=== PATIENT | male | born 1955 | race Caucasian/White ===

== ENCOUNTER 2020-02-07 14:48 | Emergency (ER) | payer OTHER ==
[~2020-02-07] VITALS: Ht 190.5 cm; Wt 120.2 kg
[~2020-02-07 14:48] MED LIST: ALLO300
[2020-02-07] MEDS ORDERED: Norco 5-325 Ta1 EACH PO (16:13)
[2020-02-07] MEDS ORDERED: CEPH500 PO (16:13)
== END 2020-02-07 16:25 | disposition home or self-care (01) ==
LOC: ER 14:48
DX: S91.011A Laceration without foreign body, right ankle, initial encounter (principal); M10.9 Gout, unspecified; Z88.8 Allergy status to other drugs, medicaments and biological substances; W27.8XXA Contact with other nonpowered hand tool, initial encounter
CPT/HCPCS: 12034; 73600; 96374-59; 96375-59; 99283-25; J1170; J2405

== ENCOUNTER 2020-02-07 17:32 | Emergency (ER) | payer OTHER ==
[~2020-02-07] VITALS: Ht 188 cm; Wt 122.5 kg
[~2020-02-07 17:32] MED LIST changes: +CEPH500 PO; +Norco 5-325 Ta1 EACH PO
[2020-02-07 18:28] LABS: BASOPHILS ABSOLUTE AUTO 0.08 K/mm3 (0.00-0.23); BASOPHILS PERCENT AUTO 0 % (0-2); EOSINOPHILS ABSOLUTE AUTO 0.26 K/mm3 (0.00-0.68); EOSINOPHILS PERCENT AUTO 1 % (0-6); Hematocrit 47.9 % (37.0-53.0); Hemoglobin 15.6 g/dL (13.5-17.5); IMMATURE GRAN ABSOLUTE AUTO 0.12 K/mm3 (0.00-0.10); IMMATURE GRAN PERCENT AUTO 1 % (0-1); LYMPHOCYTES ABSOLUTE AUTO 2.74 K/mm3 (0.84-5.20); LYMPHOCYTES PERCENT AUTO 15 % (21-46); MONOCYTES ABSOLUTE AUTO 0.91 K/mm3 (0.16-1.47); MONOCYTES PERCENT AUTO 5 % (4-13); Mean Corpuscular HGB 30.5 pg (26.0-34.0); Mean Corpuscular HGB Conc 32.6 g/dL (31.5-36.5); Mean Corpuscular Volume 94 fL (80-100); Mean Platelet Volume 9.3 fL (9.1-12.4); NEUTROPHILS ABSOLUTE AUTO 14.16 K/mm3 (1.96-9.15); NEUTROPHILS PERCENT AUTO 78 % (41-73); Platelet Count 287 K/mm3 (150-400); RDW Coefficient Variation 13.8 % (11.7-14.2); RDW Standard Deviation 48.3 fL (35.1-46.3); Red Blood Cell Count 5.11 M/mm3 (4.30-5.90); White Blood Cell Count 18.27 K/mm3 (4.00-11.30)
== END 2020-02-07 19:50 | disposition home or self-care (01) ==
LOC: ER 17:32
PROVIDERS: Nurse Practitioner
DX: S91.312A Laceration without foreign body, left foot, initial encounter (principal); I10 Essential (primary) hypertension; F17.200 Nicotine dependence, unspecified, uncomplicated; Z88.8 Allergy status to other drugs, medicaments and biological substances; Z79.899 Other long term (current) drug therapy; W29.3XXA Contact with powered garden and outdoor hand tools and machinery, initial encounter
CPT/HCPCS: 36415; 85025; 99283; A9270-GY

== ENCOUNTER → 2020-02-18 | Outpatient (CLI) | payer OTHER ==
[2020-02-18 17:06] LABS: BASOPHILS ABSOLUTE AUTO 0.08 K/mm3 (0.00-0.23); BASOPHILS PERCENT AUTO 1 % (0-2); EOSINOPHILS ABSOLUTE AUTO 0.74 K/mm3 (0.00-0.68); EOSINOPHILS PERCENT AUTO 5 % (0-6); Hematocrit 48.2 % (37.0-53.0); Hemoglobin 15.6 g/dL (13.5-17.5); IMMATURE GRAN ABSOLUTE AUTO 0.08 K/mm3 (0.00-0.10); IMMATURE GRAN PERCENT AUTO 1 % (0-1); LYMPHOCYTES ABSOLUTE AUTO 3.04 K/mm3 (0.84-5.20); LYMPHOCYTES PERCENT AUTO 22 % (21-46); MONOCYTES ABSOLUTE AUTO 1.29 K/mm3 (0.16-1.47); MONOCYTES PERCENT AUTO 9 % (4-13); Mean Corpuscular HGB 30.7 pg (26.0-34.0); Mean Corpuscular HGB Conc 32.4 g/dL (31.5-36.5); Mean Corpuscular Volume 95 fL (80-100); Mean Platelet Volume 8.9 fL (9.1-12.4); NEUTROPHILS ABSOLUTE AUTO 8.43 K/mm3 (1.96-9.15); NEUTROPHILS PERCENT AUTO 62 % (41-73); Platelet Count 437 K/mm3 (150-400); RDW Coefficient Variation 14.1 % (11.7-14.2); RDW Standard Deviation 48.7 fL (35.1-46.3); Red Blood Cell Count 5.08 M/mm3 (4.30-5.90); White Blood Cell Count 13.66 K/mm3 (4.00-11.30)
== END | disposition home or self-care (01) ==
LOC: LAB 15:20 → LAB SHORT 15:20
PROVIDERS: Nurse Practitioner Family
DX: L03.119 Cellulitis of unspecified part of limb (principal)
CPT/HCPCS: 85025; 87070; 87075; 87205

== ENCOUNTER → 2020-03-06 | Outpatient (CLI) | payer OTHER | END | disposition home or self-care (01) | LOC: LAB SHORT 19:00 → LAB 19:00 | DX: T14.8XXD Other injury of unspecified body region, subsequent encounter (principal); T81.30XD Disruption of wound, unspecified, subsequent encounter | CPT/HCPCS: 87070; 87075; 87077; 87186; 87205 ==

== ENCOUNTER 2020-03-21 00:37 | Day surgery (SDC) | payer OTHER | END 2020-03-21 23:21 | disposition home or self-care (01) | LOC: WOUND 00:37 | DX: E11.622 Type 2 diabetes mellitus with other skin ulcer (principal); L97.822 Non-pressure chronic ulcer of other part of left lower leg with fat layer exposed; E78.5 Hyperlipidemia, unspecified; I10 Essential (primary) hypertension; F41.9 Anxiety disorder, unspecified; F41.3 Other mixed anxiety disorders; F32.9 Major depressive disorder, single episode, unspecified; F17.210 Nicotine dependence, cigarettes, uncomplicated; G47.33 Obstructive sleep apnea (adult) (pediatric) ==

== ENCOUNTER 2020-03-27 00:20 | Day surgery (SDC) | payer OTHER | END 2020-03-27 23:23 | disposition home or self-care (01) | LOC: WOUND 00:20 | DX: E11.622 Type 2 diabetes mellitus with other skin ulcer (principal); L97.822 Non-pressure chronic ulcer of other part of left lower leg with fat layer exposed; E78.5 Hyperlipidemia, unspecified; E66.9 Obesity, unspecified; F41.9 Anxiety disorder, unspecified; F32.9 Major depressive disorder, single episode, unspecified; F17.200 Nicotine dependence, unspecified, uncomplicated; I10 Essential (primary) hypertension; G47.33 Obstructive sleep apnea (adult) (pediatric); Z68.33 Body mass index [BMI] 33.0-33.9, adult; Z79.899 Other long term (current) drug therapy ==

== ENCOUNTER 2020-04-02 00:47 | Day surgery (SDC) | payer OTHER | END 2020-04-02 23:18 | disposition home or self-care (01) | LOC: WOUND 00:47 | DX: E11.622 Type 2 diabetes mellitus with other skin ulcer (principal); L97.822 Non-pressure chronic ulcer of other part of left lower leg with fat layer exposed; E78.5 Hyperlipidemia, unspecified; E66.9 Obesity, unspecified; F41.8 Other specified anxiety disorders; F17.210 Nicotine dependence, cigarettes, uncomplicated; I10 Essential (primary) hypertension; G47.33 Obstructive sleep apnea (adult) (pediatric) ==

== ENCOUNTER 2020-04-10 00:16 | Day surgery (SDC) | payer OTHER | END 2020-04-10 23:15 | disposition home or self-care (01) | LOC: WOUND 00:16 | DX: E11.622 Type 2 diabetes mellitus with other skin ulcer (principal); L97.822 Non-pressure chronic ulcer of other part of left lower leg with fat layer exposed; E78.5 Hyperlipidemia, unspecified; E66.9 Obesity, unspecified; F17.200 Nicotine dependence, unspecified, uncomplicated; G47.30 Sleep apnea, unspecified; I10 Essential (primary) hypertension; F41.8 Other specified anxiety disorders; Z68.33 Body mass index [BMI] 33.0-33.9, adult; Z79.899 Other long term (current) drug therapy ==

== ENCOUNTER 2020-04-24 00:19 | Day surgery (SDC) | payer OTHER | END 2020-04-24 22:49 | disposition home or self-care (01) | LOC: WOUND 00:19 | DX: E11.622 Type 2 diabetes mellitus with other skin ulcer (principal); L97.822 Non-pressure chronic ulcer of other part of left lower leg with fat layer exposed; F17.200 Nicotine dependence, unspecified, uncomplicated; I10 Essential (primary) hypertension; E66.9 Obesity, unspecified; F41.9 Anxiety disorder, unspecified; F32.9 Major depressive disorder, single episode, unspecified; E78.5 Hyperlipidemia, unspecified; G47.33 Obstructive sleep apnea (adult) (pediatric); Z68.33 Body mass index [BMI] 33.0-33.9, adult; Z79.899 Other long term (current) drug therapy ==

== ENCOUNTER 2023-01-05 10:23 | Day surgery (SDC) | payer MEDICARE, BC ==
[~2023-01-05] VITALS: Ht 190.5 cm; Wt 124.8 kg
[~2023-01-05 10:23] MED LIST changes: +ALLO100 PO; +AMLO10 PO; +BUSP10 PO; +HYDCHL25 PO; +IRBE150 PO; +METF500 PO; +METO50ER PO; +ROSU10TA PO; +SERT100 PO; +TAMS.4ER PO
--- NOTE | 2023-01-05 14:37 | NUR ---
01/05/23 1437 Hemalatha Torres PATIENT RECEIVED VANCO 1GM IN THE PREOP SETTING PRIOR TO ARRIVING IN THE OR.
--- NOTE | 2023-01-05 17:20 | NUR ---
PATIENT ARRIVED TO ROOM VIA BED. X3 BULKY DRESSINGS TO LEFT HIP, C/D/I. POLAR PACK IN PLACE. PATIENT REPORTS PAIN 3/10 AT THIS TIME, STATES A TOLERABLE LEVEL IS 4. ABLE TO WIGGLE ALL TOES, HAS FULL SENSATION TO BLE. VSS ON RA, LUNGS CLEAR. ORIENTED TO ROOM & CALL LIGHT, IN REACH.
--- NOTE | 2023-01-05 19:05 | NUR ---
NO ACUTE CHANGES SINCE ARRIVAL TO UNIT. PATIENT HAS DENIED NEED FOR PAIN MEDICATION. INSULIN PER EMAR. TOLERATING PO DIET WELL, DENIES N/V. PATIENT HAS NOT BEEN OOB YET. CALL LIGHT IN REACH, REPORT GIVEN TO EDGARD MILLER.
--- NOTE | 2023-01-06 04:36 | NUR ---
POD1 LEFT THI. SENSATION AND CIRCULATION REMAINS INTACT IN LLE. DRESSING IS C/D/I. VSS. PT SLEPT WELL T/O THE NIGHT. PT ONLY TOOK SCHEULED TORADOL AND TYLENOL. C/O GENERALIZED BODY ACHED BUT NO "HIP PAIN". PT DID NOT GET OOB LAST NIGHT D/T COMING OUT OF PACU LATER IN THE EVENING, PLAN TO GET PT UP TO RECLINER THIS AM. PT HAD MINIMAL URINE OUTPUT, PLAN TO BLADDER SCAN AND HAVE PT ATTEMPT TO VOID AFTER GETTING OOB. TOLLERATING PO INTAKE W/O N/V. NO ACUTE EVENTS T/O THE NIGHT. PLAN FOR PT AND OT AND PT TO D/C HOME TODAY. THE PATIENT IS CURRENTSL SLEEPING, IN NO DISTRESS, CALL LIGHT IN REACH
[2023-01-06 05:02] LABS: BASOPHILS ABSOLUTE AUTO 0.04 K/mm3 (0.00-0.23); BASOPHILS PERCENT AUTO 0 % (0-2); EOSINOPHILS PERCENT AUTO 0 % (0-6); Hemoglobin 12.4 g/dL (13.5-17.5); IMMATURE GRAN ABSOLUTE AUTO 0.19 K/mm3 (0.00-0.10); IMMATURE GRAN PERCENT AUTO 1 % (0-1); LYMPHOCYTES ABSOLUTE AUTO 1.45 K/mm3 (0.84-5.20); LYMPHOCYTES PERCENT AUTO 6 % (21-46); MONOCYTES PERCENT AUTO 6 % (4-13); Mean Corpuscular HGB 29.7 pg (26.0-34.0); Mean Corpuscular HGB Conc 32.6 g/dL (31.5-36.5); Mean Corpuscular Volume 91 fL (80-100); Mean Platelet Volume 9.2 fL (9.1-12.4); NEUTROPHILS ABSOLUTE AUTO 20.28 K/mm3 (1.96-9.15); NEUTROPHILS PERCENT AUTO 87 % (41-73); Platelet Count 256 K/mm3 (150-400); RDW Coefficient Variation 14.2 % (11.7-14.2); RDW Standard Deviation 47.7 fL (35.1-46.3); Red Blood Cell Count 4.18 M/mm3 (4.30-5.90); White Blood Cell Count 23.26 K/mm3 (4.00-11.30)
[2023-01-06 06:01] LABS: Bun/Creatinine Ratio 31.4 (12.0-20.0); Creatinine, Blood 0.73 mg/dL (0.60-1.20); Magnesium, Blood 1.6 mg/dL (1.6-2.4); Potassium, Blood 3.8 mmol/L (3.5-5.5)
[2023-01-06] MEDS ORDERED: Aspir 8181 MG PO (09:33)
[2023-01-06] MEDS ORDERED: BACTRIM DS TAB1 EAC6 PO (09:48)
[2023-01-06] MEDS ORDERED: OXAYDO5 M1 PO (09:48)
[2023-01-06] MEDS ORDERED: ONDA4ODT MM (09:49)
--- NOTE | 2023-01-06 11:32 | NUR ---
DISCHARGED TO HOME WITH SON. PT REPORTS PAIN IS WELL CONTROLLED, DENIES NAUSEA. LUCA PO FOOD AND FLUIDS WITHOUT NAUSEA. VOIDING CLEAR YELLOW URINE. DRESSING SUPPLIES PROVIDED TO PATIENT. PT AND HIS SON DENY ANY QUESTIONS REGARDING DISCHARGE
== END 2023-01-06 11:47 | disposition home or self-care (01) ==
LOC: ORSCMMR 10:23 → SURS 17:17 → ORD 17:30 → ORSCMMR 17:30
PROVIDERS: Orthopaedic Surgery
PROC: 0SRB0JA Replacement of Left Hip Joint with Synthetic Substitute, Uncemented, Open Approach (ICD-10-PCS; principal; 2023-01-05 14:15)
DX: M16.12 Unilateral primary osteoarthritis, left hip (principal); I10 Essential (primary) hypertension; E78.5 Hyperlipidemia, unspecified; G47.33 Obstructive sleep apnea (adult) (pediatric); Z87.891 Personal history of nicotine dependence; E11.9 Type 2 diabetes mellitus without complications; F41.8 Other specified anxiety disorders; Z79.899 Other long term (current) drug therapy; E66.9 Obesity, unspecified; Z68.36 Body mass index [BMI] 36.0-36.9, adult; Z79.84 Long term (current) use of oral hypoglycemic drugs
CPT/HCPCS: 36415; 72170; 80048; 82947; 83735; 85025; 97110; 97161; 97166; 97530; 97535; A9270; C1713; C1776; J0171; J0690; J0735; J1100; J1815; J1885; J2250; J2370; J2405; J2704; J2765; J2795; J3010; J3370; J7030; J7120

== ENCOUNTER 2023-10-06 07:24 | Day surgery (SDC) | payer MEDICARE, BC ==
[~2023-10-06] VITALS: Ht 188 cm; Wt 124.4 kg
[~2023-10-06 07:24] MED LIST changes: -ALLO100 PO; +ALLO300 PO; +AMLO10; -AMLO10 PO; +Aspir 8181 MG PO; +Avapro300 MG PO; +BACTRIM DS TAB1 EAC6 PO; -IRBE150 PO; +ONDA4ODT MM; +OXAYDO5 M1 PO
[2023-10-06] MEDS ORDERED: LOSA50 PO (07:39)
[2023-10-06] MEDS ORDERED: AMOX500 PO (07:43)
[2023-10-06 08:56] VITALS: BP 163/82
--- NOTE | 2023-10-06 09:01 | NUR ---
10/06/23 0901 Prince Fuentes IV REMOVED INTACT. SITE WNL.
== END 2023-10-06 09:13 | disposition home or self-care (01) ==
LOC: ORSCSDS 07:24
PROVIDERS: Ophthalmology
PROC: 08RK3JZ Replacement of Left Lens with Synthetic Substitute, Percutaneous Approach (ICD-10-PCS; principal; 2023-10-06 08:30)
DX: E11.36 Type 2 diabetes mellitus with diabetic cataract (principal); H25.12 Age-related nuclear cataract, left eye; J44.9 Chronic obstructive pulmonary disease, unspecified; I10 Essential (primary) hypertension; Z68.35 Body mass index [BMI] 35.0-35.9, adult; Z79.899 Other long term (current) drug therapy
CPT/HCPCS: 82947; J2001; J2250; J3010; J3301; J7040; V2632

== ENCOUNTER 2023-10-13 10:22 | Day surgery (SDC) | payer MEDICARE, BC ==
[~2023-10-13] VITALS: Ht 188 cm; Wt 126.5 kg
[~2023-10-13 10:22] MED LIST changes: +AMOX500 PO; +LOSA50 PO
[2023-10-13 12:21] VITALS: BP 159/77
== END 2023-10-13 12:29 | disposition home or self-care (01) ==
LOC: ORSCSDS 10:22
PROVIDERS: Ophthalmology
PROC: 08RJ3JZ Replacement of Right Lens with Synthetic Substitute, Percutaneous Approach (ICD-10-PCS; principal; 2023-10-13 11:30)
DX: H25.11 Age-related nuclear cataract, right eye (principal); Z96.1 Presence of intraocular lens; F41.9 Anxiety disorder, unspecified; E78.5 Hyperlipidemia, unspecified; I10 Essential (primary) hypertension; E66.9 Obesity, unspecified; Z68.35 Body mass index [BMI] 35.0-35.9, adult; Z79.899 Other long term (current) drug therapy
CPT/HCPCS: J2250; J3010; J7040; V2632

== ENCOUNTER 2024-11-12 08:30 | Day surgery (SDC) | payer MEDICARE, BC ==
[2024-11-12] VITALS (13 sets, daily range): BP systolic 104–158; BP diastolic 54–79
[~2024-11-12] VITALS: Ht 185.4 cm; Wt 125.6 kg
[~2024-11-12 08:30] MED LIST changes: -AMLO10; +AMLO10 PO; +Acetaminophen 500 MG Tab PO SCH; +Bupivacaine HCl 0.25% 30 ML Injection ONE; +CeFAZolin Sodium 3,000 MG in NS 100 ML IV SCH; +Chlorhexidine Mouth Care 15 ML UDC MT SCH; +Crestor40 MG PO; +EpiNEPhrine 1 MG/1 ML 1ML Vial ONE; +FentaNYL Citrate 50 MCG/ML 2 ML Injection ONE; +Lactated Ringer's 1,000 ML IV SCH; +Midazolam HCl 1MG / ML 2ML Vial ONE; +OxyCODONE HCL 10 MG TABCR PO SCH; -ROSU10TA PO; +Ropivacaine 0.5% HCl/Pf 123.125 MG,EPINEPHrine HCL 0.25 MG,Ketorolac Tromethamine 15 MG... INFIL SCH; +Tranexamic Acid 1,000 MG in NS 100 ML IV SCH; +propofoL 40 ML IV ONE
[2024-11-12] MEDS ORDERED: Mepivacaine MPF 2% Inj 20 ML Vial INJ ONE (08:45)
[2024-11-12] MEDS ORDERED: ALBU90OI INH (09:00)
[2024-11-12] MEDS ORDERED: MUPIROCIN1 G2 TOP (09:06)
[2024-11-12] MEDS ORDERED: OxyCODONE HCL 5 MG TAB PO PRN ×2 (09:20)
[2024-11-12] MEDS ORDERED: Promethazine HCl 25 MG Tab PO PRN (09:25)
[2024-11-12] MEDS ORDERED: HYDROmorphone HCl/Pf 1MG SYR IV PRN (09:25)
[2024-11-12] MEDS ORDERED: Prochlorperazine Edisylate 10 mg Vial IV PRN (09:25)
[2024-11-12] MEDS ORDERED: DiphenhydrAMINE HCL 25 MG Cap PO PRN (09:25)
[2024-11-12] MEDS ORDERED: FLU VACC TS2024-25(6MOS UP)/PF 45 MCG/0.5 ML SYRINGE IM SCH (09:25)
[2024-11-12] MEDS ORDERED: Bisacodyl 10 MG Supp PR PRN (09:25)
[2024-11-12] MEDS ORDERED: CeFAZolin Sodium 3,000 MG VIAL ONE (09:27)
[2024-11-12] MEDS ORDERED: Magnesium Hydroxide Conc 10 ML UDC PO PRN (09:30)
[2024-11-12] MEDS ORDERED: Lactated Ringer's 1,000 ML IV SCH (09:30)
[2024-11-12] MEDS ORDERED: Ondansetron HCl 2 MG / ML 2ML Vial IV PRN (09:30)
[2024-11-12] MEDS ORDERED: Metoclopramide HCl 5MG / ML 2ML Vial IV PRN (09:30)
[2024-11-12] MEDS ORDERED: Albuterol HFA200 ACT/6.7 GM INH INH PRN (09:35)
--- NOTE | 2024-11-12 09:47 | NUR ---
TIME OUT FOR CHRISTIE NERVE BLOCK WITH DR TOSCANO.
--- NOTE | 2024-11-12 09:49 | NUR ---
CHRISTIE NERVE BLOCK START: 949, STOP 952, PATIENT TOLERATED WELL.
[2024-11-12] MEDS ORDERED: ePHEDrine Sulfate 50 MG/ML 1ML Injection ONE (10:44)
--- NOTE | 2024-11-12 10:55 | NUR ---
11/12/24 Hemalatha Noriega PRIOR TO ARRIVING IN THE OR, PATIENT RECEIVED A CHRISTIE NERVE BLOCK RIGHT SIDE, PERFORMED BY IN THE PREOP SETTING. UPON ENTRY TO THE OR, PATIENT RECEIVED A SPINAL NERVE BLOCK PERFORMED BY AT BEDSIDE.
[2024-11-12] MEDS ORDERED: propofoL 40 ML IV ONE (10:59)
[2024-11-12] MEDS ORDERED: propofoL 50 ML IV ONE ×2 (11:08→11:48)
[2024-11-12] MEDS ORDERED: Ketorolac Tromethamine 15mg Vial IV SCH (12:00)
[2024-11-12] MEDS ORDERED: HYDROmorphone HCl/Pf 1MG SYR ONE (12:37)
--- NOTE | 2024-11-12 13:36 | NUR ---
POST-OP NOTE ARRIVED TO ROOM 216 FROM PACU VIA BED AT 1310. PT AWAKE, ALERT ORIENTED. PAIN IS MINIMAL 1/10, DENIES N/V, DENIES ANY N/T TO LOWER EXTREM. ABLE TO WIGGLE TOES. CLEAR DRESSING TO ANTERIOR RIGHT HIP CDI, NO DRAINAGE. VSS AFEBRILE.
[2024-11-12] MEDS ORDERED: Acetaminophen 500 MG Tab PO SCH (16:00)
--- NOTE | 2024-11-12 17:04 | NUR ---
SHIFT SUMMARY NO ACUTE CHANGES SINCE ARRIVAL TO UNIT. PATIENT S/P R THI. VSS. SBP 130s-140s. HR 40s-50s. PATIENT ASYMPTOMATIC OF BRADYCARDIA. ON ROOM AIR, SATs >90%. HX OF PURA WITH CPAP USE - HOME CPAP AT BEDSIDE. ORDER IN PLACE FOR RT TO EVAL DEVICE FOR USE. UP WITH PHYSICAL THERAPY TODAY - RECOMMENDING DC HOME TOMORROW FOLLOWING ADDITIONAL SESSION OF THERAPY. 1P FWW GB - CURRENTLY UP IN RECLINER CHAIR. PRINEO DX C/D/I. TOLERATING PO INTAKE. VOIDING. PAIN 11/02 WITH SCHEDULED MEDICATION PER EMAR AND CRYOTHERAPY. CALL LIGHT IN REACH. FAMILY AT BEDSIDE.
[2024-11-12] MEDS ORDERED: Sertraline HCl 100 MG Tab PO SCH (18:00)
[2024-11-12] MEDS ORDERED: CeFAZolin Sodium 3,000 MG in NS 100 ML IV SCH (18:00)
[2024-11-12] MEDS ORDERED: Docusate Sodium 100 MG Cap PO SCH (21:00)
[2024-11-12] MEDS ORDERED: Tamsulosin HCl 0.4 MG Cap PO SCH (21:00)
[2024-11-12] MEDS ORDERED: HydroCHLOROthiazide 25 mg Tab PO SCH (21:00)
[2024-11-12] MEDS ORDERED: Allopurinol 300 MG Tab PO SCH (21:00)
[2024-11-13 00:29] VITALS: BP 152/70
[2024-11-13] MEDS ORDERED: Calcium Carbonate 500 MG Tab Chew PO PRN (00:35)
[2024-11-13 05:42] VITALS: BP 155/74
[2024-11-13 05:43] LABS: BASOPHILS ABSOLUTE AUTO 0.04 K/mm3 (0.00-0.23); BASOPHILS PERCENT AUTO 0 % (0-2); EOSINOPHILS ABSOLUTE AUTO 0.36 K/mm3 (0.00-0.68); EOSINOPHILS PERCENT AUTO 3 % (0-6); Hematocrit 38.3 % (37.0-53.0); Hemoglobin 12.9 g/dL (13.5-17.5); IMMATURE GRAN ABSOLUTE AUTO 0.07 K/mm3 (0.00-0.10); IMMATURE GRAN PERCENT AUTO 1 % (0-1); LYMPHOCYTES ABSOLUTE AUTO 1.45 K/mm3 (0.84-5.20); LYMPHOCYTES PERCENT AUTO 10 % (21-46); MONOCYTES PERCENT AUTO 8 % (4-13); Mean Corpuscular HGB 30.7 pg (26.0-34.0); Mean Corpuscular HGB Conc 33.7 g/dL (31.5-36.5); Mean Corpuscular Volume 91 fL (80-100); Mean Platelet Volume 9.6 fL (9.1-12.4); NEUTROPHILS ABSOLUTE AUTO 11.37 K/mm3 (1.96-9.15); NEUTROPHILS PERCENT AUTO 79 % (41-73); Platelet Count 243 K/mm3 (150-400); RDW Standard Deviation 46.6 fL (35.1-46.3); White Blood Cell Count 14.39 K/mm3 (4.00-11.30)
--- NOTE | 2024-11-13 06:38 | NUR ---
SHIFT SUMMARY PATIENT ALERT AND ORIENTED X4. HAD NO COMPLAINTS OF PAIN OR SHORTNESS OF BREATH. ON ROOM AIR, WORE HOME CPAP FOR SLEEP. VITAL SIGNS STABLE. NO ACUTE ISSUES NOTED OVERNIGHT. WILL CONTINUE TO MONITOR. CALL LIGHT WITHIN REACH.
[2024-11-13 06:40] LABS: Bun/Creatinine Ratio 25.3 (12.0-20.0); Calcium, Blood 8.5 mg/dL (8.5-10.1); Creatinine, Blood 0.59 mg/dL (0.60-1.20); Magnesium, Blood 1.6 mg/dL (1.6-2.4); Potassium, Blood 3.4 mmol/L (3.5-5.5)
[2024-11-13] MEDS ORDERED: ACET500 PO (07:19)
[2024-11-13] MEDS ORDERED: ASPI81CH PO (07:20)
[2024-11-13] MEDS ORDERED: OXYC5 PO (07:21)
[2024-11-13 07:25] VITALS: BP 153/74
[2024-11-13] MEDS ORDERED: AmLODIPine Besylate 5 MG Tab PO SCH (09:00)
[2024-11-13] MEDS ORDERED: Losartan Potassium 50 MG Tab PO SCH (09:00)
[2024-11-13] MEDS ORDERED: Metoprolol Succinate 50 MG TABCR PO SCH (09:00)
[2024-11-13] MEDS ORDERED: Irbesartan 150 MG Tab PO SCH (09:00)
[2024-11-13] MEDS ORDERED: Aspirin 81 MG Chew PO SCH (09:00)
--- NOTE | 2024-11-13 11:00 | NUR ---
DISCHARGE PT HAS WORKED w/ THERAPY. PAIN WELL CONTROLLED w/ NO NARCOTICS. EATING, DRINKING, & VOIDING WELL. POLAR PACK SENT w/ PT. ESCORTED OUT VIA W/C. SPOUSE & SON VERY ATTENTIVE.
== END 2024-11-13 10:59 | disposition home or self-care (01) ==
LOC: ORSCMMR 08:30 → ORD 10:00 → ORSCMMR 10:00 → SURS 13:15 → ORSCMMR 11-13 10:59 → SURS 11-13 10:59
PROVIDERS: Orthopaedic Surgery
PROC: 0SR90JA Replacement of Right Hip Joint with Synthetic Substitute, Uncemented, Open Approach (ICD-10-PCS; principal; 2024-11-12 10:00)
DX: M16.11 Unilateral primary osteoarthritis, right hip (principal); G47.33 Obstructive sleep apnea (adult) (pediatric); J44.9 Chronic obstructive pulmonary disease, unspecified; Z87.891 Personal history of nicotine dependence; E11.9 Type 2 diabetes mellitus without complications; E66.9 Obesity, unspecified; Z68.36 Body mass index [BMI] 36.0-36.9, adult; F41.9 Anxiety disorder, unspecified; F32.A Depression, unspecified; I10 Essential (primary) hypertension; E78.5 Hyperlipidemia, unspecified; Z79.899 Other long term (current) drug therapy
CPT/HCPCS: 36415; 72170; 80048; 82947; 83735; 85025; 94762; 97110; 97116; 97161; 97530; A9270; C1776; J0171; J0670; J0690; J0735; J1171; J1885; J2250; J2704; J2795; J3010; J7120